=== PATIENT | male | born 1980 | race Caucasian/White ===

== ENCOUNTER 2019-08-31 10:01 | Emergency (ER) | payer MEDICAID, OTHER ==
[~2019-08-31] VITALS: Ht 177.8 cm; Wt 97.5 kg
[2019-08-31] MEDS ORDERED: LOSA50TA39 PO (10:11)
[2019-08-31] MEDS ORDERED: BISO5TAB20 PO (10:11)
[2019-08-31] MEDS ORDERED: CLON0.1T PO (10:11)
--- NOTE | 2019-08-31 10:17 | NUR ---
Dr. Tadeo at bedside for MSE.
[2019-08-31] MEDS ORDERED: LORAZEPAM 1 MG TABLET ONE (10:25)
[2019-08-31] MEDS ORDERED: LORAZEPAM 0.5 MG TABLET PO ONE (10:30)
--- NOTE | 2019-08-31 11:45 | NUR ---
Patient discharged to home in stable condition. Written and verbal after care instructions given. Patient verbalizes understanding of instructions. Stressed follow up or return to ER for worsening s/s.
== END 2019-08-31 11:46 | disposition home or self-care (01) ==
LOC: ER 10:01
DX: F41.9 Anxiety disorder, unspecified (principal); I10 Essential (primary) hypertension
CPT/HCPCS: A4663